=== PATIENT | female | born 1990 | race Caucasian/White ===

== ENCOUNTER 2019-09-04 19:47 | Emergency (ER) | payer SELFPAY ==
[~2019-09-04] VITALS: Ht 170.2 cm; Wt 59.0 kg
[2019-09-04 20:00] VITALS: BP 115/70
[2019-09-04] MEDS ORDERED: VENTOLIN HFA18 GM INH (20:34)
--- NOTE | 2019-09-04 20:34 | Emergency Room Report ---
History of Present Illness General Chief Complaint: Upper Respiratory Illness Source: Patient Present Illness HPI 29-year-old female with no significant past medical history here complaining of 1 day of shortness of breath and minimal amount of cough. Patient reports that [place] different state and was exposed to gas leak and was there for 3 days. Complains of dizziness and headache. Denies any nausea vomiting abdominal pain. Denies any loss of taste and smell, diarrhea. Reports that she flew today and felt short of breath the whole time. Denies any leg swelling and edema. Denies pleuritic chest pain. Oxygenation within normal limits. Patient appears to be afebrile. Denies . Denies tobacco smoking marijuana use. Sitting comfortably with stable vital signs speaking full sentences. Allergies: Uncoded Allergies: CEPLORE (Allergy, Unknown, 09/04/19) COVID-19 Screening Contact w/high risk pt: No Experienced COVID-19 symptoms?: Yes COVID-19 Testing performed [employer]: No Patient History Past Medical History: see triage record Past Surgical History: none Pertinent Family History: none Last Menstrual Period: 08/05/19 Now: No : 2 Para: 0 Immunizations: UTD Reviewed Nursing Documentation: PMH: Agreed; PSxH: Agreed Nursing Documentation-PMH Past Medical History: No History, Except For Hx COPD: Yes - bronchitis Review of Systems All Other Systems: negative except mentioned in HPI Physical Exam Vital Signs Date Time Temp Pulse Resp B/P (MAP) Pulse Ox O2 Delivery O2 Flow Rate FiO2 09/04/19 19:53 98.6 66 18 110/73 (85) 98 Room Air Sp02 EP Interpretation: reviewed, normal General Appearance: normal inspection Head: normocephalic, atraumatic Eyes: bilateral eye normal inspection, bilateral eye PERRL ENT: hearing grossly normal, normal pharynx, no angioedema, normal voice Neck: full range of motion, supple, supple/symm/no masses Respiratory: chest non-tender, lungs clear, normal breath sounds, no rhonchi, no wheezing, speaking full sentences Cardiovascular #1: regular rate, rhythm, no edema, no murmur Gastrointestinal: normal bowel sounds, non tender, soft, non-distended, no guarding, no rebound Rectal: deferred Genitourinary: no CVA tenderness Musculoskeletal: back normal Neurologic: alert, motor strength/tone normal, oriented x3, sensory intact, responsive, speech normal Psychiatric: judgement/insight normal, memory normal, mood/affect normal, no suicidal/homicidal ideation Skin: no rash Lymphatic: no adenopathy Medical Decision Making PA Attestation Diagnosis and treatment plans were reviewed and discussed with my supervising physician Dr. Mesa Diagnostic Impression: Primary Impression: SOB (shortness of breath) ER Course 29-year-old female with no significant past medical history here complaining of 1 day of shortness of breath and minimal amount of cough. Patient reports that she was at a different state and was exposed to gas leak and was there for 3 days. Complains of dizziness and headache. Denies any nausea vomiting abdominal pain. Denies any loss of taste and smell, diarrhea. Reports that she flew today and felt short of breath the whole time. Denies any leg swelling and edema. Denies pleuritic chest pain. Oxygenation within normal limits. Patient appears to be afebrile. Denies . Denies tobacco smoking marijuana use. Sitting comfortably with stable vital signs speaking full sentences. Ddx considered but are not limited to: bronchitis, PNA, URI viral, bacterial bronchitis, coronavirus, shortness of breath secondary to chemical exposure, PE Vital signs: are WNL, pt. is afebrile H&PE are most consistent with: Shortness of breath secondary to chemical exposure ORDERS: Chest x-ray, albuterol ED INTERVENTIONS: None required at this time. DISCHARGE: At this time pt. is stable for d/c to home. Will provide printed patient care instructions, and any necessary prescriptions. Care plan and follow up instructions have been discussed with the patient prior to discharge. Patient take medication as directed, follow primary care provider, at this time no further evaluation is needed patient sitting comfortably with stable vital signs and speaking full sentences, chest x-ray within normal limits. If worsening symptoms and continuation of symptoms follow-up primary doctor. Also if worsening symptoms return to the emergency room. Chest X-Ray Diagnostic Results Chest X-Ray Diagnostic Results : Chest X-Ray Ordered: Yes # of Views/Limited/Complete: 1 View Indication: Shortness of Breath EP Interpretation: Yes SANTY Xray: Interpretation reviewed, by supervising MD, and agrees with findings. Interpretation: no consolidation, no effusion, no pneumothorax Impression: No acute disease Electronically Signed by: Charito Muñoz PA-C Last Vital Signs Date Time Temp Pulse Resp B/P (MAP) Pulse Ox O2 Delivery O2 Flow Rate FiO2 09/04/19 19:53 98.6 66 18 110/73 (85) 98 Room Air Disposition: HOME, SELF-CARE Condition: Stable Scripts Albuterol Sulfate (VENTOLIN HFA) 18 Gm Hfa.aer.ad 2 PUFFS INH EVERY 6 HOURS, #18 GM 0 Refills Prov: Charito Bui 09/04/19 Referrals: NOT CHOSEN IPA/,REFERRING (PCP) Patient Instructions: Shortness of Breath, [id number] Additional Instructions: Take medication as directed, follow-up with your primary care provider, increase oral hydration, if worsening symptoms return to the emergency room Charito Bui Sep 04, 2019 20:34
[2019-09-04 20:40] VITALS: BP 120/72
--- NOTE | 2019-09-05 10:12 | Diagnostic Imaging Report ---
Procedure: XRAY Chest 1v Reason for study: Reason For Exam: SOB Comparison films: None. FINDINGS: A single one view chest is obtained. Vascularity is normal. The lung henao are clear bilaterally. Cardiac and mediastinal silhouette are within normal limits. CP angles are sharp. The bony thorax appear unremarkable. IMPRESSION: NO ACUTE CARDIOPULMONARY DISEASE.
== END 2019-09-04 20:40 | disposition home or self-care (01) ==
LOC: EMR 20:15
DX: R06.02 Shortness of breath (principal); R05 Cough; J44.9 Chronic obstructive pulmonary disease, unspecified; R51 Headache
CPT/HCPCS: 71045; 99283